=== PATIENT | female | born 1985 | race Caucasian/White ===

== ENCOUNTER 2017-08-03 08:59 | Emergency (ER) | payer OTHER ==
[2017-08-03 09:44] LABS: Bilirubin Negative (Negative); Blood, Urine Negative (Negative); Glucose, Urine (Dipstick) Negative (Negative); Ketone, Urine Negative (Negative); Nitrite Positive (Negative); Protein, Urine (Dipstick) Negative (Neg-Trace)
[2017-08-03 09:49] LABS: Bacteria/HPF 4+ HPF (None Seen); Hyaline Casts/LPF 0-3 HYALINE CAST LPF (0-3 Hyaline); Squamous Epithelial 0-3 HPF (0-3)
[2017-08-03 09:59] LABS: RBC/HPF None Seen HPF (0-3)
== END 2017-08-03 09:41 | disposition home or self-care (01) ==
LOC: ERS 08:59
DX: J11.1 Influenza due to unidentified influenza virus with other respiratory manifestations (principal); F41.9 Anxiety disorder, unspecified; F32.9 Major depressive disorder, single episode, unspecified; G47.00 Insomnia, unspecified
CPT/HCPCS: 81003; 81015; 81025; 99283

== ENCOUNTER 2018-09-09 08:20 | Emergency (ER) | payer OTHER, SELFPAY | END 2018-09-09 09:27 | disposition home or self-care (01) | LOC: ERS 08:20 | DX: M67.432 Ganglion, left wrist (principal); F41.9 Anxiety disorder, unspecified; F32.9 Major depressive disorder, single episode, unspecified; G47.00 Insomnia, unspecified | CPT/HCPCS: 99283 ==

== ENCOUNTER 2019-09-20 06:12 | Emergency (ER) | payer SELFPAY ==
[2019-09-20] MEDS ORDERED: Ondansetron ODT 8 MG TAB ONE (06:27)
== END 2019-09-20 07:10 | disposition home or self-care (01) ==
LOC: ERS 06:12
DX: R11.2 Nausea with vomiting, unspecified (principal); R19.7 Diarrhea, unspecified; F41.9 Anxiety disorder, unspecified; F32.9 Major depressive disorder, single episode, unspecified; G47.00 Insomnia, unspecified
CPT/HCPCS: 99283

== ENCOUNTER 2019-10-21 13:47 | Emergency (ER) | payer MEDICAID, SELFPAY ==
--- NOTE | 2019-10-21 15:05 | RAD ---
RIGHT SHOULDER 3 VIEWS: Date: 10/21/2019 HISTORY: Right shoulder pain. FINDINGS/IMPRESSION: No fracture, dislocation, or other significant acute osseous abnormality. POS: [facility]
== END 2019-10-21 15:48 | disposition home or self-care (01) ==
LOC: ERS 13:47
DX: S29.012A Strain of muscle and tendon of back wall of thorax, initial encounter (principal); F41.9 Anxiety disorder, unspecified; F32.9 Major depressive disorder, single episode, unspecified; X58.XXXA Exposure to other specified factors, initial encounter

== ENCOUNTER 2020-08-16 12:53 | Emergency (ER) | payer SELFPAY ==
[2020-08-16] MEDS ORDERED: Ketorolac Tromethamine 30 MG/ML VIAL ONE (16:25)
[2020-08-16] MEDS ORDERED: Cyclobenzaprine 10 MG TAB ONE (16:25)
== END 2020-08-16 17:16 | disposition home or self-care (01) ==
LOC: ERS 12:53
DX: M62.830 Muscle spasm of back (principal)
CPT/HCPCS: 96372; 99283; J1885

== ENCOUNTER 2021-09-06 16:36 | Emergency (ER) | payer BC, SELFPAY ==
[2021-09-06 18:26] LABS: Hemoglobin 12.7 g/dL (12.0-16.0); Mean Corpuscular HGB CONC 32.1 g/dL (32.0-36.0); Mean Corpuscular Hemoglobin 23.9 pg (27.0-31.0); Mean Corpuscular Volume 74.3 fL (78.0-98.0); Mean Platelet Volume 6.6 fL (7.4-10.4); Platelet Count 411 thou/uL (130-400); RBC Distribution Width 12.9 % (11.5-14.5); White Blood Cell (WBC) Count 14.3 thou/uL (4.8-10.8)
[2021-09-06 18:44] LABS: ALT (SGPT) 51 U/L (8-55); AST (SGOT) 26 U/L (5-34); Albumin 4.4 g/dL (3.5-5.0); Alkaline Phosphatase 58 U/L (40-110); Anion Gap 11 mmol/L (10-20); BUN (Urea Nitrogen) 12 mg/dL (7.0-18.7); Bilirubin, Total 0.3 mg/dL (0.2-1.2); Calc. Creatinine Clearance 0 mL/min (70-130); Calcium 9.5 mg/dL (7.8-10.44); Carbon Dioxide 26 mmol/L (22-29); Chloride 104 mmol/L (98-107); Globulin 3.9 g/dL (2.4-3.5); Glucose 103 mg/dL (70-105); Lipase 28 U/L (8-78); Potassium 4.2 mmol/L (3.5-5.1); Protein, Total 8.3 g/dL (6.0-8.3); Sodium 137 mmol/L (136-145)
[2021-09-06 18:51] LABS: #Eosinphils 0.1 thou/uL (0.0-0.7); #Lymphocytes 2.2 thou/uL (1.20-3.40); #Monocytes 0.6 thou/uL (0.11-0.59); #Neutrophils 11.4 thou/uL (1.40-6.50); %Basophils 0.2 % (0.0-1.0); %Eosinophils 0.4 % (0.0-10.0); %Lymphocytes 15.1 % (21.0-51.0); %Monocytes 4.5 % (0.0-10.0); %Neutrophils 79.9 % (42.0-75.0); MDiff Complete? YES; Microcytosis SLIGHT = 6-15 cells (100X) (0-5/hpf); Platelet Morphology Comment Appears Increased; Polychromasia SLIGHT = 2-3 cells (100X) (0-2/hpf); Stomatocytes SLIGHT = 2-5 cells (100X) (0-1/hpf)
[2021-09-06 19:28] LABS: BHCG - Serum Negative (NEGATIVE); Pregs Control Background? CLEAR/WHITE (CLR/WHITE); Pregs Control Bar Appear? YES (CONTROL BAR)
[2021-09-06] MEDS ORDERED: Ondansetron ODT 8 MG TAB ONE (20:38)
[2021-09-06 20:56] LABS: Bilirubin Negative (Negative); Blood, Urine 1+ (Negative); Clarity Clear (Clear); Glucose, Urine (Dipstick) Normal (Negative); Ketone, Urine Trace mg/dL (Negative); Leukocyte 75 Leu/uL (Negative); Nitrite 1+ (Negative); Pregnancy Test - Urine (BHCG) Negative (Negative); Protein, Urine (Dipstick) 30 mg/dL (Neg-Trace); Specific Gravity, Urine 1.032 (1.002-1.036); Squamous Epithelial 0-3 HPF (0-3); Urobilinogen Normal mg/dL (Less than 2)
[2021-09-06 20:57] LABS: Pregu Control Background? CLEAR/WHITE (CLR/WHITE); Pregu Control Bar Appear? YES (CONTROL BAR); Specific Gravity 1.032 (1.002-1.036)
[2021-09-06 21:08] LABS: RBC/HPF 0-3 HPF (0-3); WBC/HPF 0-3 HPF (0-3)
[2021-09-06 21:09] LABS: Bacteria/HPF 2+ HPF (None Seen)
[2021-09-07 12:29] LABS: SARS-CoV-2 PCR by NAA Not Detected (NotDetected)
== END 2021-09-06 21:50 | disposition home or self-care (01) ==
LOC: ERS 16:36
DX: N39.0 Urinary tract infection, site not specified (principal); Z20.822 Contact with and (suspected) exposure to COVID-19
CPT/HCPCS: 36415; 80053; 81003; 81015; 81025; 83690; 84703; 85025; 99284; Q0162; U0003; U0005

== ENCOUNTER 2021-09-11 13:38 | Emergency (ER) | payer BC ==
[2021-09-11] MEDS ORDERED: Lidocaine 4% Cream 5 GM TUBE w/ Tegaderm ONE ×2 (14:31→15:45)
[2021-09-11] MEDS ORDERED: Bupivacaine 0.5% 10 ML VIAL ONE (15:05)
== END 2021-09-11 15:43 | disposition home or self-care (01) ==
LOC: ERS 13:38
DX: S61.101A Unspecified open wound of right thumb with damage to nail, initial encounter (principal); F17.210 Nicotine dependence, cigarettes, uncomplicated; Z79.899 Other long term (current) drug therapy; W23.0XXA Caught, crushed, jammed, or pinched between moving objects, initial encounter
CPT/HCPCS: 99283; J3490

== ENCOUNTER 2022-01-11 06:47 | Emergency (ER) | payer BC ==
[2022-01-11] MEDS ORDERED: Cyclobenzaprine 10 MG TAB ONE (07:27)
[2022-01-11] MEDS ORDERED: Ketorolac Tromethamine 30 MG/ML VIAL ONE (07:27)
== END 2022-01-11 08:17 | disposition home or self-care (01) ==
LOC: ERS 06:47
DX: M54.50 Low back pain, unspecified (principal); M54.6 Pain in thoracic spine; F17.210 Nicotine dependence, cigarettes, uncomplicated
CPT/HCPCS: 96372; 99283; J1885

== ENCOUNTER 2022-03-04 21:46 | Emergency (ER) | payer BC ==
[2022-03-04] MEDS ORDERED: Ibuprofen 200 MG TAB ONE (22:23)
== END 2022-03-04 22:37 | disposition home or self-care (01) ==
LOC: ERS 21:46
DX: U07.1 COVID-19 (principal); F17.210 Nicotine dependence, cigarettes, uncomplicated
CPT/HCPCS: 99283; U0003; U0005

== ENCOUNTER 2023-04-06 15:57 | Emergency (ER) | payer BC ==
[2023-04-06] MEDS ORDERED: Ketorolac Tromethamine 30 MG/ML VIAL ONE (19:00)
[2023-04-06] MEDS ORDERED: Orphenadrine Citrate 60 MG/2 ML VIAL ONE (19:00)
[2023-04-06 19:54] LABS: Pregnancy Test - Urine (BHCG) Negative (Negative); Pregu Control Background? CLEAR/WHITE (CLR/WHITE); Pregu Control Bar Appear? YES (CONTROL BAR); Specific Gravity 1.021 (1.002-1.036)
[2023-04-06 19:55] LABS: Bacteria/HPF 4+ HPF (None Seen); Bilirubin Negative (Negative); Blood, Urine 1+ (Negative); CAUTI Indications for Culture Pelvic or flank pain; Clarity Turbid (Clear); Glucose, Urine (Dipstick) 30 mg/dL (Negative); Ketone, Urine Negative (Negative); Leukocyte 25 Leu/uL (Negative); Mucous/LPF Rare LPF (<2+); Nitrite 2+ (Negative); Protein, Urine (Dipstick) 10 mg/dL (Neg-Trace); Specific Gravity, Urine 1.021 (1.002-1.036); Squamous Epithelial 0-3 HPF (0-3); Urobilinogen Normal mg/dL (Less than 2); pH, Urine 6.5 (5.0-9.0)
[2023-04-06 19:57] LABS: Urine Culture Reflex No No
== END 2023-04-06 20:34 | disposition home or self-care (01) ==
LOC: ERS 15:57
DX: M25.551 Pain in right hip (principal); N39.0 Urinary tract infection, site not specified; Z87.891 Personal history of nicotine dependence
CPT/HCPCS: 81001; 81025; 96372; J1885; J2360

== ENCOUNTER 2023-06-17 22:17 | Emergency (ER) | payer BC | END 2023-06-17 22:44 | disposition home or self-care (01) | LOC: ERS 22:17 | DX: H10.9 Unspecified conjunctivitis (principal); Z87.891 Personal history of nicotine dependence | CPT/HCPCS: 99283 ==

== ENCOUNTER 2025-04-19 12:07 | Emergency (ER) | payer BC ==
[2025-04-19] MEDS ORDERED: diphenhydrAMINE 50 MG/ML VIAL ONE (12:38)
[2025-04-19] MEDS ORDERED: Metoclopramide HCl 10 MG (2 mL) VIAL ONE (12:38)
[2025-04-19] MEDS ORDERED: Acetaminophen 500 MG TAB ONE (12:38)
[2025-04-19 12:54] LABS: #Basophils 0.04 10x3/uL (0.0-0.2); #Eosinophils 0.20 10x3/uL (0.0-0.7); #Monocytes 0.74 10x3/uL (0.11-0.59); #Neutrophils 5.02 10x3/uL (1.40-6.50); %Basophils 0.4 % (0.0-1.0); %Eosinophils 2.1 % (0.0-10.0); %Lymphocytes 36.7 % (21.0-51.0); %Monocytes 7.8 % (0.0-10.0); %Neutrophils 52.7 % (42.0-75.0); Hematocrit 38.3 % (36.0-47.0); Hemoglobin 11.8 g/dL (12.0-16.0); Mean Corpuscular Hemoglobin 22.6 pg (27.0-31.0); Mean Corpuscular Volume 73.5 fL (78.0-98.0); Platelet Count 386 10x3/uL (130-400); Red Blood Cell (RBC) Count 5.21 mill/uL (4.20-5.40); White Blood Cell (WBC) Count 9.52 10x3/uL (4.8-10.8)
[2025-04-19 13:12] LABS: ALT (SGPT) 48 U/L (Less than 34); AST (SGOT) 34 U/L (11-34); Albumin 3.6 g/dL (3.1-4.5); Alkaline Phosphatase 75 U/L (40-110); Anion Gap 13 mmol/L (10-20); BUN (Urea Nitrogen) 10 mg/dL (7.0-18.7); Bilirubin, Total 0.4 mg/dL (0.3-1.2); Calc. Creatinine Clearance 0 mL/min (70-130); Calcium 9.1 mg/dL (7.8-10.44); Carbon Dioxide 25 mmol/L (22-29); Chloride 105 mmol/L (98-107); Globulin 4.1 g/dL (2.4-3.5); Glucose 90 mg/dL (70-105); Potassium 3.9 mmol/L (3.5-5.1); Sodium 139 mmol/L (136-145)
[2025-04-19] MEDS ORDERED: Magnesium 2 GM/50 ML BAG (IN WATER) ONE (13:20)
[2025-04-19 13:27] LABS: Anisocytosis SLIGHT = 6-15 cells HPF (0-5); Microcytosis SLIGHT = 6-15 cells HPF (0-5); Platelet Adequacy Comment Platelets Normal; Polychromasia SLIGHT = 2-3 cells HPF (0-2)
[2025-04-19 14:25] LABS: Bacteria/HPF 1+ HPF (None Seen); CAUTI Indications for Culture Pelvic or flank pain; Glucose, Urine (Dipstick) Normal (Negative); Leukocyte 25 Leu/uL (Negative); Protein, Urine (Dipstick) Negative (Neg-Trace); RBC/HPF 0-3 HPF (0-3); Specific Gravity, Urine 1.024 (1.002-1.036); Urine Culture Reflex No No
== END 2025-04-19 15:50 | disposition home or self-care (01) ==
LOC: ERS 12:07
DX: R51.9 Headache, unspecified (principal); I10 Essential (primary) hypertension; R29.700 NIHSS score 0; Z79.899 Other long term (current) drug therapy
CPT/HCPCS: 36415; 70450; 80053; 81001; 83880; 84484; 85025; 93005; 96365; 96375; J1200; J2765; J2919; J3475